=== PATIENT | male | born 1970 | race Two or more races ===

== ENCOUNTER 2019-08-11 15:38 | Emergency (ER) | payer OTHER ==
[~2019-08-11] VITALS: Ht 167.6 cm; Wt 93.0 kg
[2019-08-11 16:10] VITALS: BP 132/92
[2019-08-11] MEDS ORDERED: KETOROLAC 30 MG/1 ML ONE (16:38)
[2019-08-11] MEDS ORDERED: KETOROLAC 30 MG/1 ML IM ONE (17:00)
== END 2019-08-11 17:34 | disposition home or self-care (01) ==
LOC: ED 17:30
DX: S50.02XA Contusion of left elbow, initial encounter (principal); W01.0XXA Fall on same level from slipping, tripping and stumbling without subsequent striking against object, initial encounter; Y93.89 Activity, other specified; Y92.69 Other specified industrial and construction area as the place of occurrence of the external cause; Y99.8 Other external cause status
CPT/HCPCS: 29105; 73080; 96372; 99283; J1885